=== PATIENT | female | born 1965 | race Caucasian/White ===

== ENCOUNTER → 2017-02-01 | Outpatient (CLI) | payer OTHER | END | disposition home or self-care (01) | LOC: MAMMO 14:30 | PROVIDERS: ATTEND Obstetrics & Gynecology | DX: Z12.31 Encounter for screening mammogram for malignant neoplasm of breast (principal) | CPT/HCPCS: 77063; G0202 ==

== ENCOUNTER → 2018-04-12 | Outpatient (CLI) | payer OTHER ==
--- NOTE | 2018-04-12 17:50 | MRI ---
EXAM DESCRIPTION: Lumbar Spine w/o Contrast : Magnetic Resonance Imaging. CLINICAL HISTORY: Low back pain. Left lower extremity radiculopathy. COMPARISON: MRI lumbar spine without contrast 10/28/2008. TECHNIQUE: Multiplanar, multiple standard sequences, non contrast MRI, lumbar spine. FINDINGS: L5-S1: Disc desiccation and disc space loss. Grade 1 retrolisthesis 2 mm. Left paracentral 6.5 mm disc protrusion displacing the descending left S1 nerve posteriorly and also partially effacing the left subarticular recess. Hyperintense T2 signal in the herniated segment of the disc. Not present on the prior study. AP canal diameter 7 mm to the left of midline. Mild to moderate left foraminal narrowing and mild right foraminal narrowing. Facet joints and flavum ligaments unremarkable. L4-L5: Normal signal in the disc and disc space preserved. No posterior bulging. Minimal bilateral flavum ligament hypertrophy. AP canal diameter 9 mm. Slight progression since the prior study. Bilateral foramina are patent. Facet joints are unremarkable. L3-L4: Disc desiccation and minimal anterior bulging. Minimal narrowing of the anterior disc space. Posterior disc space unremarkable. AP canal diameter 10 mm. Posterior flavum ligament hypertrophy with facets unremarkable. Bilateral foramina are patent. L2-L3: Normal signal in the disc with disc space preserved. Minimal flavum ligament hypertrophy. Facets unremarkable. Canal and foramina are patent. L1-L2: Normal signal in the disc with disc space preserved. No bulging. Minimal hypertrophy of the flavum ligaments. Facets are negative. Canal and foramina are patent. T12-L1: Normal signal in the disc with disc space preserved. Conus terminates just below the disc space. Posterior elements unremarkable. Canal and foramina are patent. No scoliosis. Paravertebral soft tissues negative. Normal marrow signal in the remaining vertebral bodies and the posterior elements. Vertebral bodies are not compressed at any level. IMPRESSION: 1. Interval onset of left posterior L5-S1 disc herniation encroaching on the thecal sac and the descending left S1 nerve root with left paracentral canal stenosis. Bilateral moderate left foraminal narrowing. 2. No L4-5 disc bulging but hypertrophied flavum ligaments with mild central canal stenosis. This has progressed since the prior study. Foramina are patent. 3. Minimal disc desiccation with anterior bulging L3-4. Hypertrophied flavum ligaments and borderline mild central canal stenosis. This has progressed since the prior study. Electronically signed by: William Faye MD 04/12/2018 5:47 PM REGISTER CLERK
== END ==
LOC: MRI 08:46
PROVIDERS: ATTEND Family Medicine
DX: M51.27 Other intervertebral disc displacement, lumbosacral region (principal); M51.86 Other intervertebral disc disorders, lumbar region

== ENCOUNTER → 2018-09-20 | Outpatient (CLI) | payer OTHER ==
--- NOTE | 2018-09-20 16:00 | MRI ---
EXAM DESCRIPTION: Pelvis w/wo Contrast CLINICAL HISTORY: 53 years Female, INTRA ABD AND PELVIC SWELLING, MASS AND LUMP COMPARISON: None. TECHNIQUE: Pre and postcontrast multiplanar multisequence magnetic resonance imaging of the pelvis was performed. FINDINGS: The uterus is mostly anteverted in position. As a result of a large uterine fibroid, the uterus is markedly enlarged measuring up to 18 cm in the cephalocaudal dimension, 5.6 cm in the anterior posterior dimension and up to 11.8 cm in the mediolateral dimension. A dominant subserosal/pedunculated fibroid is present extending off the posterior aspect of the uterine fundus. This dominant fibroid measures 11.4 cm in the cephalocaudal dimension, 11.4 cm in the mediolateral dimension and up to 7.3 cm in the anterior posterior dimension. No other dominant fibroids are demonstrated. This dominant fibroid appears to be mostly supplied from the left uterine artery. Endometrial stripe thickness is normal. The junctional zone thickness is normal. No endometrial mass is demonstrated. The right ovary is normal in size and appearance measuring approximately 3.2 x 1.5 cm. The left ovary is normal in size and appearance measuring approximately 2.4 x 1.1 cm. There is no free intrapelvic fluid. No lymphadenopathy is present. The bladder is normal in appearance. The rectal colon is normal in appearance. Recent surgical changes are present within the lower lumbar spine likely from a prior L5-S1 partial discectomy. IMPRESSION: Large approximate 600 mL uterine fibroid. This would account for the clinical exam findings. Normal ovaries. Electronically signed by: Chuy Parada MD 09/20/2018 3:58 PM CDT
== END ==
LOC: LAB.O 09:54
PROVIDERS: ATTEND Family Medicine
DX: D25.9 Leiomyoma of uterus, unspecified (principal); E11.65 Type 2 diabetes mellitus with hyperglycemia

== ENCOUNTER → 2018-11-05 | Outpatient (CLI) | payer OTHER ==
--- NOTE | 2018-11-06 17:27 | MAM ---
EXAM DESCRIPTION: 3D Screening BILATERAL : Digital Mammography. CLINICAL HISTORY: 53 years Female ANNUAL SCREENING . No personal or family history of breast cancer. No complaints. Menarche age 11. Childbirth. Postmenopausal less than 2 years.. Lifetime risk of developing breast cancer (Tyrer-Cuzick model)(%): 9.1. COMPARISON: bilateral screening digital breast tomosynthesis 02/01/2017. TECHNIQUE: Bilateral CC and MLO projection full-field images, digital tomosynthesis mammographic technique. Bilateral digital 2-D full-field MLO images. CAD not available for tomosynthesis or 2-D images. FINDINGS: The breast parenchymal density pattern is: Heterogeneously dense breast tissue, which may obscure small masses. No skin thickening or nipple retraction. Bilateral microcalcifications. Minimal anterior architectural distortion midline left breast also medially in the left breast stable since the prior study. Stable calcifications associated with soft tissue density lower inner quadrant anterior left breast. Stable small group of microcalcifications near the posterior nipple line of the left breast. No new focal, stellate mass or density, focal asymmetry , and no suspicious microcalcifications bilaterally. Stable mammograms compared to prior study. IMPRESSION: Benign exam. BIRAD CATEGORY: 2 BENIGN FINDINGS. RECOMMENDATIONS: FOLLOW UP: Routine digital bilateral mammographic screening, one year interval from October 2018. Written communication explaining the IMPRESSION and follow-up, will be mailed to the patient and referring health care provider. According to the [employer], yearly mammograms are recommended starting at age 40 and continuing as long as a woman is in good health. Any breast change noted on a breast self-exam should be reported promptly to the patient's healthcare provider. Breast MRI is recommended for women with an approximately 20-25% or greater lifetime risk of breast cancer, including women with a strong family history of breast or ovarian cancer and women who have been treated for Hodgkin's disease. A negative mammographic report should not delay tissue diagnosis in patients with significant clinical history or physical findings. Extremely dense breast tissue limits the sensitivity of digital mammography. Electronically signed by: William Faye MD 11/06/2018 5:25 PM CDT
== END ==
LOC: MAMMO 10:54
PROVIDERS: ATTEND Obstetrics & Gynecology
DX: Z12.31 Encounter for screening mammogram for malignant neoplasm of breast (principal)

== ENCOUNTER → 2019-02-25 | Outpatient (CLI) | payer OTHER ==
--- NOTE | 2019-02-25 10:19 | RAD ---
EXAM DESCRIPTION: Knee,Right Complete CLINICAL HISTORY: PAIN IN RIGHT KNEE COMPARISON: None. TECHNIQUE: 4 views right FINDINGS: Loss of lateral joint space is observed. Lateral tibial osteophyte formation is noted. A small joint effusion is seen. Mild patellofemoral joint arthritis is seen. No fracturing is detected. IMPRESSION: Degenerative changes are observed most pronounced in the lateral joint compartment. Electronically signed by: Enrrique Washington MD 02/25/2019 10:17 AM [facility]
--- NOTE | 2019-02-25 10:21 | RAD ---
EXAM DESCRIPTION: Pelvis CLINICAL HISTORY: PAIN IN RIGHT HIP COMPARISON: None. IMPRESSION: Single AP supine view of the pelvis shows no acute fracture, focal bone destruction, or joint dislocation. Electronically signed by: Francisco Moore MD 02/25/2019 10:19 AM [facility]
== END ==
LOC: RAD 08:29
PROVIDERS: ATTEND Orthopaedic Surgery
DX: M25.551 Pain in right hip (principal); M17.11 Unilateral primary osteoarthritis, right knee

== ENCOUNTER → 2019-04-25 | Outpatient (CLI) | payer OTHER ==
--- NOTE | 2019-04-25 14:18 | MRI ---
EXAM DESCRIPTION: MRI right knee CLINICAL HISTORY: Osteoarthritis of the right knee COMPARISON: None. TECHNIQUE: Multiplanar, multisequence MR images of the right knee FINDINGS: Complex tear of the anterior horn and body lateral meniscus. Fraying and irregularity of the meniscus at the tibial root without complete root detachment. Contiguous superior articular surface tear of the remainder of the anterior horn and anterior body with mild superior lateral subluxation of the meniscus. Blunting and fraying of the free edge. Lateral femorotibial chondrosis, full-thickness chondral loss over the majority of the tibia. Grade 3/4 chondral loss over the majority of the weightbearing femoral condyle most significantly posteriorly over the posterior weightbearing condyle Focal inferior articular surface tear of the medial meniscus posterior horn/body junction. Blunting of the free edge mid body. A full-thickness chondral defect of the anterior weightbearing femoral condyle measures 6 x 4 mm. An adjacent smaller 3 mm defect in the tibia. No subchondral marrow edema. This is best seen on coronal image 17, sagittal image 13. Mild diffuse thinning of the femorotibial cartilage otherwise Patellar chondral thinning and surface irregularity. Multifocal fissuring. Full-thickness fissure and small focus of edema at the superior apex. Femoral trochlear chondral thinning and surface irregularity, grade 3 along the lower medial trochlea ACL, PCL, MCL and fibular collateral ligaments are intact Biceps femoris, popliteus and iliotibial band tendons are normal. Patellar and quadriceps tendons and tendons of the posterior medial knee are intact Moderate joint effusion. Mild degenerative synovitis with subsynovial fatty proliferation in the suprapatellar bursa. No intra-articular loose body IMPRESSION: Complex tear of the anterior horn and body lateral meniscus Severe lateral femorotibial chondrosis, full-thickness over the majority of the tibia and mid to posterior weightbearing femoral condyle Inferior articular surface tear of the medial meniscus at the posterior horn/body junction Small focal full-thickness chondral defects weightbearing medial femorotibial Electronically signed by: Reggie Larios MD 04/25/2019 2:17 PM CDT
== END ==
LOC: MRI 10:21
PROVIDERS: ATTEND Orthopaedic Surgery
DX: M17.11 Unilateral primary osteoarthritis, right knee (principal); S83.271A Complex tear of lateral meniscus, current injury, right knee, initial encounter; S83.241A Other tear of medial meniscus, current injury, right knee, initial encounter; M94.261 Chondromalacia, right knee; M24.10 Other articular cartilage disorders, unspecified site

== ENCOUNTER → 2019-06-25 | Outpatient (CLI) | payer OTHER | LOC: LAB.O 09:40 | PROVIDERS: ATTEND Orthopaedic Surgery | DX: Z01.818 Encounter for other preprocedural examination (principal) ==

== ENCOUNTER 2019-07-10 05:25 | Day surgery (SDC) | payer OTHER ==
[2019-07-10] MEDS ORDERED: LACTATED RINGERS 1,000 ML IVS ONE ×2 (06:43)
[2019-07-10] MEDS ORDERED: BUPIVACAINE 0.5% 30 ML VIAL INJ ONE (06:53)
[2019-07-10] MEDS ORDERED: BUPIVACAINE LIPOSOME 13.3 MG/ML VIAL INJ ONE (06:53)
[2019-07-10] MEDS ORDERED: ceFAZolin SODIUM 1 GM VIAL IRRIG ONE (06:53)
[2019-07-10] MEDS ORDERED: VANCOMYCIN HCL INJ 1,000 MG VIAL IVPB ONE (06:53)
[2019-07-10] MEDS ORDERED: LIDOCAINE 1% 10 ML VIAL INJ ONE (07:00)
[2019-07-10] MEDS ORDERED: MAGNESIUM SULFATE INJ 1 GM/2 ML VIAL ONE (07:00)
[2019-07-10] MEDS ORDERED: DEXAMETHASONE INJ 10 MG/ML VIAL ONE (07:00)
[2019-07-10] MEDS ORDERED: fentaNYL CITRATE INJ 50 MCG/ML 2 ML AMP ONE (07:00)
[2019-07-10] MEDS ORDERED: PROPOFOL 200 MG/20 ML VIAL IV ONE (07:00)
[2019-07-10] MEDS ORDERED: diphenhydrAMINE HCL 50 MG/ML VIAL ONE (07:00)
[2019-07-10] MEDS ORDERED: KETOROLAC TROMETHAMINE INJ 30 MG/ML VIAL ONE (07:00)
[2019-07-10] MEDS ORDERED: KETAMINE HCL 100 MG/ML VIAL ONE (07:00)
[2019-07-10] MEDS ORDERED: MIDAZOLAM INJ 2 MG/2 ML VIAL ONE (07:00)
[2019-07-10] MEDS ORDERED: HYDROmorphone HCL INJ 2 MG/ML VIAL IV ONE ×2 (08:31→08:41)
[2019-07-10] MEDS ORDERED: HYDROcodone 5MG/APAP 325MG 1 EA TAB PO ONE (09:15)
--- NOTE | 2019-07-10 10:01 | OP ---
DATE OF PROCEDURE: 07/10/19 PREOPERATIVE DIAGNOSIS: 1. Right knee osteoarthritis. 2. Meniscus tear. POSTOPERATIVE DIAGNOSIS: 1. Right knee osteoarthritis. 2. Meniscus tear. PROCEDURE: 1. Debridement. 2. Partial lateral meniscectomy. SURGEON: Nicolás Hammond MD. SUPERVISOR [employer]: William Zuniga CST, SA-C. ANESTHESIA: General anesthesia. COMPLICATIONS: None. FINDINGS: 1. Areas of full thickness cartilage loss in the medial compartment. 2. Normal ACL and normal PCL. 3. Large areas of full thickness cartilage loss in the lateral compartment. 4. Degenerative tearing of the meniscus in the lateral compartment. 5. Normal lateral gutter. 6. Normal suprapatellar pouch. 7. Advanced arthritic changes in the patellofemoral compartment. 8. Normal medial gutter. INDICATION: Autumn has a history of knee pain. It has been refractory to conservative measures. Autumn and I have talked about her options. At this point, because of her ongoing symptoms, she has requested operative intervention. We discussed knee arthroscopy and the potential for return of the knee pain just given her diagnoses. She expressed understanding of that. After discussing the risks, benefits and alternatives to operative therapy, she has given informed consent. PROCEDURE: The patient was brought to the Operating Room and placed in supine position. General anesthesia was induced and the patient's leg was sterilely prepped and draped. Following prepping and draping, standard anteromedial and anterolateral portals were established. Diagnostic arthroscopy was carried out with the above findings. Attention was then focused on medial compartment where a 3.5 mm full radius shaver was used to debride the femoral cartilage to a stable base. The tibial surfaces were also debrided. Attention then was focused on the lateral compartment and the meniscus was debrided and thoroughly probed to ensure no instability. An accessory superolateral portal was established to debride the patellofemoral compartment. The knee was thoroughly irrigated and drained. Following draining of the knee, the wounds were closed with Nylon suture. Sterile dressings were placed. The patient was awoken from anesthesia and taken to Recovery. POSTOPERATIVE PLAN: The patient will be non-weightbearing until she follows up with us in two days. #[id number] MTDD
[2019-07-10 10:19] VITALS: BP 124/74; TEMP 97.3; O2SAT 97
== END 2019-07-10 10:15 | disposition home or self-care (01) ==
LOC: AMB 05:25
PROVIDERS: ATTEND Orthopaedic Surgery
DX: M23.300 Other meniscus derangements, unspecified lateral meniscus, right knee (principal); M17.11 Unilateral primary osteoarthritis, right knee; I10 Essential (primary) hypertension; E11.9 Type 2 diabetes mellitus without complications; K21.9 Gastro-esophageal reflux disease without esophagitis; E66.9 Obesity, unspecified; Z79.899 Other long term (current) drug therapy; Z88.0 Allergy status to penicillin; Z79.4 Long term (current) use of insulin
CPT/HCPCS: 01400; 29881; 36416; 80307; 82948; J0690; J1100; J1170; J1200; J1885; J2250; J3010; J3370; J3475; J3490; J7120

== ENCOUNTER 2019-10-22 19:03 | Emergency (ER) | payer OTHER ==
--- NOTE | 2019-10-22 19:07 | ED.PDOC ---
History of Present Illness - General Time Seen by Provider: 10/22/19 19:06 Source: patient - History of Present Illness Initial Comments: 54-year-old female with PMH of hypertension, diabetes who presents with chief complaint of right ankle pain following injury at home just prior to arrival. Patient states she was wearing high heels and walking down her steps at home when she suffered an inversion injury of the right ankle. She reports constant throbbing pain to the right lateral ankle without radiation as well as some moderate swelling to the area. She denies any deformities or color change. Reports pain is moderate only with weightbearing and walking which is able to do but with pain. She reports minimal pain at rest. She has not taken any medication for the pain. Denies any weakness or numbness. Denies any other acute injuries. Allergies/Adverse Reactions: Allergies Penicillins Adverse Reaction (Verified 07/05/19 10:36) Home Medications: Ambulatory Orders Amlodipine Besylate-Benazepril [Amlodipine Besylate/Benaz 5-10 mg] 1 cap PO DAILY 07/05/19 Biotin 1 unit PO DAILY 07/05/19 Estradiol 0.025 mg TD DAILY 07/05/19 Insulin Detemir [Levemir Pen] 300 units SUBCU DAILY 07/05/19 Meloxicam [Mobic] 15 mg PO DAILY 07/05/19 Metformin HCl [Metformin Hydrochloride] 500 mg PO DAILY 07/05/19 Multiple Vitamins W/ Minerals [Womens 50+ Multi Vitamin] 1 mg PO DAILY 07/05/19 Nebivolol HCl [Bystolic] 1 mg PO DAILY 07/05/19 Nutritional Supplements [Menopause Formula] 1 tab PO DAILY 07/05/19 Psyllium Husk (Bulk) [Psyllium Husk] 1 pow XX DAILY 07/05/19 Review of Systems - Review of Systems Review of Systems: 10/22/19 19:20 as per HPI All other Systems: Reviewed and Negative Past Medical History (General) - Patient Medical History Hx Congestive Heart Failure: No Hx Diabetes: Yes - FSBS 129 Hx MRSA: No Physical Exam - Physical Exam General Appearance: Alert, Comfortable, No apparent distress, Other - overweight Eyes, Ears, Nose, Throat: PERRL/EOMI Neck: full range of motion, normal inspection Cardiovascular/Respiratory: regular rate, rhythm, no M/R/G, normal peripheral pulses, no JVD, normal breath sounds, no respiratory distress Gastrointestinal/Abdominal: non-tender Thigh/Hip: normal inspection, no evidence of injury, normal ROM Leg: normal inspection, non-tender, no evidence of injury Knee: normal inspection, non-tender, no evidence of injury, normal ROM Ankle: other - Right ankle with moderate swelling to the lower lateral component with moderate soft tissue tenderness laterally. Minimal right lateral malleolar bony tenderness to palpation. Range of motion of the right ankle is mildly limited due to pain. Strength and sensation grossly normal throughout. Foot: other - DP and PT pulses 2+ and equal bilaterally Neuro/Tendon: normal sensation, normal motor functions Mental Status: alert, oriented x 3 Skin: normal color, warm/dry Progress - Progress Progress: 10/22/19 19:23 Acute right ankle pain -Suspect right lower ankle sprain most likely. Consider also the right ankle fracture versus other. -Obtain x-ray imaging of the right ankle. Cold compress for pain control. Patient declines pain medications. 10/22/19 19:25 -X-ray imaging of the right ankle shows no evidence of fracture per my read. Discussed findings and diagnosis of right lower ankle sprain with patient. Discussed continued home treatment and recovery. Advised close follow-up with her PCP. Discharge to home in good condition. Miguel Angel Castro MD Billing #[id number] - EKG/XRAY/CT XRAY: ankle - No acute bony processes per my read Departure - Departure Clinical Impression: Right ankle sprain Qualifiers: Encounter type: initial encounter Involved ligament of ankle: anterior talofibular ligament Qualified Code(s): S93.491A - Sprain of other ligament of right ankle, initial encounter Time of Disposition: 19:28 Disposition: Discharge to Home or Self Care Condition: Good Instructions: Ankle Sprain (DC) Diet: resume usual diet Activity: increase activity as tolerated Referrals: Ra Byrne MD [Primary Care Provider] - 1-2 Weeks Home Medications: Ambulatory Orders Amlodipine Besylate-Benazepril [Amlodipine Besylate/Benaz 5-10 mg] 1 cap PO DAILY 07/05/19 Biotin 1 unit PO DAILY 07/05/19 Estradiol 0.025 mg TD DAILY 07/05/19 Insulin Detemir [Levemir Pen] 300 units SUBCU DAILY 07/05/19 Meloxicam [Mobic] 15 mg PO DAILY 07/05/19 Metformin HCl [Metformin Hydrochloride] 500 mg PO DAILY 07/05/19 Multiple Vitamins W/ Minerals [Womens 50+ Multi Vitamin] 1 mg PO DAILY 07/05/19 Nebivolol HCl [Bystolic] 1 mg PO DAILY 07/05/19 Nutritional Supplements [Menopause Formula] 1 tab PO DAILY 07/05/19 Psyllium Husk (Bulk) [Psyllium Husk] 1 pow XX DAILY 07/05/19 Additional Instructions: Follow the instruction packet provided for treatment of right ankle sprain. Keep the right leg elevated as often as possible for the next 2 to 3 days to help limit swelling. Apply a cold pack to the right ankle for 15 to 20 minutes every 1-2 hours for the next 3 days to help with swelling and pain as well. You may keep the Carroll wrap in place as you find it helps for pain control. Take ibuprofen 600 mg every 6 hours as needed and Tylenol 650 mg every 6 hours as needed for pain inflammation as well. Follow-up with your primary care physician is recommended in the next 5 to 7 days for repeat evaluation or sooner as needed. You may return to weightbearing and walking gradually as tolerated.
[2019-10-22 19:23] VITALS: BP 166/115; TEMP 97.6; O2SAT 96
--- NOTE | 2019-10-22 19:35 | RAD ---
3 VIEWS OF RIGHT ANKLE HISTORY: Ankle pain post trauma. COMPARISON: None. FINDINGS: The ankle mortise is preserved on these nonstress views. No acute fracture is identified. The surrounding soft tissues are swollen. Partially visualized fixation hardware in the first metatarsal. IMPRESSION: Ankle soft tissue swelling, without acute fracture seen. Electronically signed by: Chandler Garcia MD 10/22/2019 7:34 PM CDT
== END 2019-10-22 19:38 | disposition home or self-care (01) ==
LOC: ER 19:03
DX: S93.491A Sprain of other ligament of right ankle, initial encounter (principal); E11.9 Type 2 diabetes mellitus without complications; X50.9XXA Other and unspecified overexertion or strenuous movements or postures, initial encounter; Y93.01 Activity, walking, marching and hiking; Y92.009 Unspecified place in unspecified non-institutional (private) residence as the place of occurrence of the external cause; Z79.4 Long term (current) use of insulin; Z79.899 Other long term (current) drug therapy; Z88.0 Allergy status to penicillin

== ENCOUNTER → 2020-03-06 | Outpatient (CLI) | payer BC, OTHER ==
--- NOTE | 2020-03-09 08:48 | MAM ---
EXAM DESCRIPTION: 3D Screening BILATERAL : Digital Mammography. CLINICAL HISTORY: 54 years Female SCREENING no complaints. No family history of breast cancer. Menarche age 12. Childbirth age 25. Menopause age 52. Currently on HRT.. Lifetime risk of developing breast cancer (Tyrer-Cuzick model)(%): 8.1. COMPARISON: Bilateral screening digital breast tomosynthesis October 2018 and January 2017 TECHNIQUE: Bilateral CC and MLO projection full-field images, digital tomosynthesis mammographic technique. Bilateral digital 2-D full-field MLO images. CAD available for 2-D images. FINDINGS: The breast parenchymal density pattern is: Heterogeneously dense breast tissue, which may obscure small masses. Bilateral solitary microcalcifications. Groups of benign type calcifications. Dense tissues predominantly superior and lateral. No skin thickening or nipple retraction No new focal, stellate mass or density, focal asymmetry , and no suspicious microcalcifications bilaterally. Stable mammograms compared to prior study. IMPRESSION: Benign exam. BIRAD CATEGORY: 2 BENIGN FINDINGS. RECOMMENDATIONS: FOLLOW UP: Routine digital bilateral mammographic screening, one year interval from February 2020. Written communication explaining the IMPRESSION and follow-up, will be mailed to the patient and referring health care provider. According to the [employer], yearly mammograms are recommended starting at age 40 and continuing as long as a woman is in good health. Any breast change noted on a breast self-exam should be reported promptly to the patient's healthcare provider. Breast MRI is recommended for women with an approximately 20-25% or greater lifetime risk of breast cancer, including women with a strong family history of breast or ovarian cancer and women who have been treated for Hodgkin's disease. A negative mammographic report should not delay tissue diagnosis in patients with significant clinical history or physical findings. Extremely dense breast tissue limits the sensitivity of digital mammography. Electronically signed by: William Faye MD 03/09/2020 8:47 AM AD SETTER
== END ==
LOC: MAMMO 10:37
PROVIDERS: ATTEND Obstetrics & Gynecology
DX: Z12.31 Encounter for screening mammogram for malignant neoplasm of breast (principal)